=== PATIENT | male | born 1995 | race African-American/Black ===

== ENCOUNTER 2023-12-23 16:30 | Emergency (ER) | payer OTHER, SELFPAY ==
--- NOTE | ~2023-12-23 | CT_ITS ---
EXAMINATION: CT abdomen pelvis w con DATE: 12/23/2023 19:37 INDICATION: abdominal pain TECHNIQUE: Computed tomography (CT) of the abdomen and pelvis was performed with 100 mL Omnipaque-350 intravenous contrast. Automated exposure control and iterative reconstruction technique were employe d. The dose-length product was 407.18 mGy-cm. COMPARISON: 10/12/2018. FINDINGS: Lower thorax: Unremarkable Liver: Tiny right lobe hypodensity, likely cyst or hemangioma. Biliary/Gallbladder: Gallbladder is normal. No bile duct dilation. Pancreas: No mass or duct dilation. Spleen: Normal. Adrenals:No mass. Kidneys: No suspicious mass, obstructing stone, or hydronephrosis. Bilateral subcentimeter hypodensit ies, likely representing small cysts. GI tract: Moderate distal esophageal and mild gastric wall edema. No small or large bowel dilation. N ormal appendix. Mesentery/Peritoneum: No ascites, mass, or free air. Retroperitoneum: No mass. Pelvis: Pelvic organs are within normal limits. Soft Tissues: Soft tissues and body wall unremarkable. Bones: No acute osseous finding. IMPRESSION: Moderate esophagitis and mild gastritis. Otherwise, no abdominopelvic process detected. Reviewed, dictated and finalized at location K. GENCY DEPARTMENT COORDINATOR
[2023-12-23 16:32] VITALS: BP 131/63; PULSE 67; RESP 16; TEMP 36.8; O2SAT 98
[2023-12-23 18:52] LABS: Basophils Percent Auto 0.3 % (0.2-1.2); Eosinophils Absolute Auto 0.3 K/mm3 (0-0.3); Eosinophils Percent Auto 2.7 % (0-4.4); Hematocrit 39.7 % (42.0-52.0); Immature Granulocyte Absolute 0.02 K/mm3 (0.00-0.031); Immature Granulocyte Percent A 0.2 % (0-0.5); Lymphocytes Absolute Auto 2.61 K/mm3 (0.9-3.2); Lymphocytes Percent Auto 28.1 % (18.3-44.2); Mean Corpuscular HGB Conc 32.7 g/dl (32-36); Mean Corpuscular Hemoglobin 30.7 pg (26-34); Mean Corpuscular Volume 93.9 fl (80-100); Mean Platelet Volume 9.3 fl (7.4-10.4); Monocytes Absolute Auto 0.7 K/mm3 (0.1-0.6); Monocytes Percent Auto 7.5 % (2.6-8.5); Neutrophils Absolute Auto 5.7 K/mm3 (1.3-6.7); Neutrophils Percent Auto 61.2 % (45.5-73.1); Platelet Count Result 289 k/mm3 (150-375); Red Blood Count 4.23 M/mm3 (4.6-6.20); Red Cell Distribution Width 12.2 % (11.5-14.5); White Blood Count 9.3 K/mm3 (4.5-10.0)
--- NOTE | 2023-12-23 19:01 | ED.ABDPAIN ---
HPI - Abdominal Pain General Chief Complaint: Abdominal Pain Stated Complaint: right sided abd pain Time Seen by Provider: 12/23/23 18:49 History of Present Illness HPI narrative: Patient is a 28-year-old male with no significant past medical history here today with abdominal pain. He notes that about 4 days ago he ate some hot chips and began having upper abdominal pain. He has limited what he eats over the last 4 days but pain has been dull and constant since. He notes it is in his upper abdomen primarily but radiates throughout and into his RUQ and RLQ and into his chest. He notes that eating seems to worsen about 30 minutes after eating. As a result he has had decreased PO intake over the last 4 days. No vomiting. No diarrhea. No sick contacts. No cough, congestion, fever, chills. He notes he has had ongoing stomach issues since getting COVID last year but this seems to be new. He has had decreased stool output over the last 4 days as well. No urinary symptoms. Related Data Allergies Allergy/AdvReac Type Severity Reaction Status Date / Time Penicillins Allergy Unknown Unknown Verified 12/23/23 20:11 Review of Systems Review of Systems: All systems reviewed & are unremarkable except as noted in HPI and below PMFSH Family History Family History (Updated 08/31/18 @ 10:42 by DOCTOR UNKNOWN) Mother Patient's mother is in good health Father Patient's father is in good health Sibling Patient's brother is in good health Social History Social History Smoking status: Never smoker Exam Narrative: GENERAL: Well-appearing, well-nourished, and in no acute distress. HEAD: Normocephalic, atraumatic. EYES: PERRLA and EOMI. ENT: Nares clear. Mucous membranes moist. NECK: Supple. CHEST: Clear to auscultation. No respiratory distress. HEART: Regular rate and rhythm. Normal peripheral pulses. ABDOMEN: Soft, nondistended. Diffuse abdominal tenderness, worst in the epigastrium, RUQ and RLQ, positive Villanueva sign. No CVA tenderness. EXTREMITIES: Normal range of motion. No edema. SKIN: Warm, dry, no rash. NEURO: No focal deficits. Alert and oriented x3. PSYCH: Normal mood and affect. Course Course Emergency Course: Chart review performed. Patient here with right sided abdominal pain x4 days, worse with eating. Triage vitals normal. No prior visits in our system. Patients seen and evaluated, non toxic appearing. Patient has some abdominal tenderness on exam. Will do CT abdomen pelvis differentials include gallbladder pathology, appendicitis, gastritis, constipation, less likely bowel obstruction. Patient drove here today, will avoid narcotics initially, pepcid, zofran, IVF ordered. Lab work and imaging reviewed, no leukocytosis, normal LFTs, normal electrolytes, UA negative for UTI. CT scan shows gastritis/esophagitis, otherwise unremarkable with a normal gallbladder and normal appendix. Patient re-evaluated, has some relief with medication, pain is brought down to a 5. We will start him on a PPI, Carafate, Zofran and advised close follow-up with his primary care doctor. Will additionally give him information for outpatient GI. The results of pertinent diagnostic studies and exam findings were discussed. The patient?s provisional diagnosis and plan of care were discussed with the patient and present family. The patient and/or present family expressed understanding of the diagnosis and plan. The nurse was instructed to provide written instructions and appropriate follow-up information. The patient understands their need and responsibility to obtain additional follow-up as instructed. The risks of medications administered and prescribed were discussed with the patient and family present. Vital Signs Vital signs: Vital Signs Temperature 98.2 F 12/23/23 16:32 Pulse Rate 67 12/23/23 16:32 Respiratory Rate 16 12/23/23 16:32 Blood Pressure 131/63 12/23/23 16:32 Pulse Oximetry 98 12/23/23 16:32 Temp
[2023-12-23 19:05] LABS: Alanine Aminotransferase 26 U/L (6-50); Albumin Level 4.4 g/dL (3.5-5.1); Alkaline Phosphatase 63 U/L (38-126); Anion Gap 8 mmol/L (8-16); Aspartate Amino Transferase 36 U/L (17-59); Bilirubin,Total 0.6 mg/dL (0.2-1.3); Blood Urea Nitrogen 18 mg/dL (9-20); Calcium 9.3 mg/dL (8.4-10.2); Carbon Dioxide 29 mmol/L (22-30); Chloride 102 mmol/L (98-107); Estimated CRCL calculation 93 ml/min; Estimated Glomerular Filt Rate > 60; Glucose 98 mg/dL (65-110); Lipase 76 U/L (23-300); Potassium 3.8 mmol/L (3.4-5.0); Sodium 139 mmol/L (137-145)
[2023-12-23 19:08] LABS: Appearance Urine Clear (Clear); Bilirubin Urine Negative (Negative); Blood Urine Negative (Negative); Color Urine Yellow (Yellow); Glucose Urine UA Negative (Negative); Ketones Urine Negative (Negative); Leukocyte Esterase Ur Negative LEU/UL (Negative); Nitrate Urine Negative (Negative); Protein Urine Negative (Negative); Specific Grav Ur 1.026 (1.001-1.035); Urobilinogen Urine 0.2 mg/dL (<2.0)
[2023-12-23 19:20] LABS: Add Urine Microscopic? NO
[2023-12-23] MEDS: FAMOTIDINE 20 MG/2 ML VIAL IV PUSH (19:21)
[2023-12-23] MEDS: ONDANSETRON INJ 4 MG/2 ML VIAL IV PUSH (19:21)
[2023-12-23] MEDS: SODIUM CHLORIDE 0.9% IV 1,000 ML 999 ML IV CONT (19:21)
[2023-12-23] MEDS: BELLADONNA ALK/PHENOB ELIX 10 ML, MAG HYDROX/ALUMINUM HYD/SIMETH 30 ML, LIDOCAINE HCL 2... PO (20:07)
[2023-12-23] MEDS: DICYCLOMINE HCL INJ 20 MG/2 ML VIAL IM (20:07)
[2023-12-23 20:44] VITALS: BP 124/70; PULSE 54; RESP 18; O2SAT 100
[2023-12-23] MEDS: SUCRALFATE 1 GM TABLET PO (21:17)
[2023-12-23 21:30] VITALS: BP 117/69; PULSE 60; RESP 17; O2SAT 97
== END 2023-12-23 21:29 | disposition home or self-care (01) ==
PROVIDERS: Emergency Provider Student in an Organized Health Care Education/Training Program
DX: R10.13 Epigastric pain (principal); K29.70 Gastritis, unspecified, without bleeding; K20.90 Esophagitis, unspecified without bleeding
CPT/HCPCS: 36415; 74177; 80053; 81003; 83690; 85025; 96361; 96372; 96374; 96375; 99284; A9270; J0500; J2405; J7030; Q9967